=== PATIENT | female | born 1950 | race Caucasian/White ===

== ENCOUNTER → 2016-11-14 | Outpatient (CLI) | payer BC ==
--- NOTE | 2016-11-20 13:22 | MG ---
HISTORY: SCREENING Comparison: October 09, 2012 and March 17, 2015 FINDINGS: Bilateral CC and MLO projections of the right and left breast were obtained. Scattered fibroglandul ar tissue is seen to be present without significant interval change. No suspicious architectural di stortion, mass or clustered microcalcifications can be observed to suggest malignancy. No skin thic kening or nipple retraction is appreciated. No pathological lymphadenopathy can be identified. Jesse ign-appearing calcifications are noted within the right and left breast. IMPRESSION: NO RADIOGRAPHIC EVIDENCE OF MALIGNANCY. ACR CATEGORY 2 - benign findings. FOLLOW-UP EXAM 1 YEAR. Diagnostic CAD was utilized and reviewed. * 0 (ZERO) - ASSESSMENT INCOMPLETE; ADDITIONAL IMAGING IS NEEDED. * 1/1 (ONE) - NEGATIVE. * 2/II (TWO) - BENIGN FINDINGS. * 3/III (THREE) - PROBABLY BENIGN FINDING; SHORT INTERVAL FOLLOW-UP SUGGESTED. * 4/IV (FOUR) - SUSPICIOUS ABNORMALITY; BIOPSY SHOULD BE CONSIDERED. * 5/V (FIVE) - HIGHLY SUSPICIOUS OF MALIGNANCY; BIOPSY SHOULD BE PERFORMED. A NEGATIVE X-RAY REPORT SHOULD NOT DELAY BIOPSY IF A DOMINANT OR CLINICALLY SUSPICIOUS MASS IS PRESENT; 4 TO 8 PERCENT OF CANCERS ARE NOT IDENTIFIED BY X-RAY. A NEG ATIVE REPORT MAY REINFORCE THE CLINICAL IMPRESSION. ADENOSIS AND DENSE BREASTS MAY OBSCURE AN UNDER LYING NEOPLASM. Reported By:
== END ==
LOC: RAD 09:09
PROVIDERS: ATTEND Specialist
DX: Z12.31 Encounter for screening mammogram for malignant neoplasm of breast (principal)
CPT/HCPCS: 77067

== ENCOUNTER → 2017-03-11 | Outpatient (CLI) | payer BC ==
--- NOTE | 2017-03-11 11:36 | RAD ---
Examination: Chest, PA and lateral views History: Cough and chest wall pain Comparison reference: None Findings: Normal heart size with clear lungs and pleural spaces. There is no mediastinal or hilar les ion. Impression: No acute or significant chronic chest abnormality demonstrated. Reported By:
== END | disposition home or self-care (01) ==
LOC: RAD 11:05
PROVIDERS: ATTEND Internal Medicine
DX: R07.89 Other chest pain (principal)
CPT/HCPCS: 71020

== ENCOUNTER → 2017-05-21 | Outpatient (CLI) | payer OTHER, MEDICARE ==
[2017-05-21 08:51] LABS: BILIRUBIN,URINE NEGATIVE (NEGATIVE); BLOOD/HEMOGLOBIN,URINE 1+ (NEGATIVE); GLUCOSE, URINE NEGATIVE (NEGATIVE); KETONES,URINE NEGATIVE (NEGATIVE); LEUKOCYTE ESTERASE ,URINE 1+ (NEGATIVE); NITRITES,URINE NEGATIVE (NEGATIVE); PROTEIN,URINE NEGATIVE (NEGATIVE); UROBILINOGEN,URINE NORMAL (NORMAL)
[2017-05-21 08:58] LABS: APPEARANCE,URINE CLEAR (CLEAR); BACTERIA,URINE NEGATIVE /HPF (NEGATIVE); BASOPHILS % (AUTO) 0.7 % (0.2-1.0); CALCIUM OXALATE CRYSTALS,UR MODERATE /HPF (NEGATIVE); COLOR,URINE YELLOW (YELLOW); EOSINOPHILS # (AUTO) 0.2 x10^3/uL (0.0-0.2); EOSINOPHILS % (AUTO) 3.2 % (0.9-2.9); HEMATOCRIT 43.3 % (36.0-47.0); HEMOGLOBIN 14.7 g/dL (12.0-16.0); LYMPHOCYTES # (AUTO) 2.2 X10^3/uL (1.3-2.9); LYMPHOCYTES % (AUTO) 42.8 % (21.0-51.0); MEAN CORPUSCULAR HEMOGLOBIN 29.7 pg (27.0-34.0); MEAN CORPUSCULAR HGB CONC 34.1 g/dL (33.0-35.0); MEAN CORPUSCULAR VOLUME 87.1 fL (80.0-100.0); MEAN PLATELET VOLUME 10.6 fL (7.4-11.0); MONOCYTES # (AUTO) 0.5 x10^3/uL (0.3-0.8); MONOCYTES % (AUTO) 8.9 % (0.0-13.0); NEUTROPHILS # (AUTO) 2.2 x10^3/uL (2.2-4.8); NEUTROPHILS % (AUTO) 44.4 % (42.0-75.0); PLATELET COUNT 262 X10^3/uL (150.0-450.0); RBC,URINE 0-2 /HPF (NEGATIVE); RED BLOOD COUNT 4.97 X10^6/uL (3.5-5.4); RED CELL DISTRIBUTION WIDTH 13.1 % (11.6-16.5); SQUAMOUS EPITHELIAL CELL,UR RARE /HPF (NEGATIVE)
[2017-05-21 09:07] LABS: ALANINE AMINOTRANSFERASE 31 Units/L (12-78); ALBUMIN 3.8 g/dL (3.4-5.0); ALKALINE PHOSPHATASE 59 Units/L (46-116); AMYLASE 68 Units/L (25-115); ASPARTATE AMINO TRANSFERASE 20 Units/L (15-37); BLOOD UREA NITROGEN 17 mg/dL (7-18); CALCIUM 8.9 mg/dL (8.5-10.1); CARBON DIOXIDE 32.2 mmol/L (21-32); CHLORIDE 104 mmol/L (98-107); CREATININE 0.79 mg/dL (0.55-1.02); LIPASE 242 Units/L (73-393); SODIUM 139 mmol/L (136-145); TOTAL PROTEIN 7.4 g/dL (6.4-8.2); eGFR BLACK RACES > 60 (>60); eGFR NON BLACK RACES > 60 (>60)
== END ==
LOC: LAB 08:29
PROVIDERS: ATTEND Internal Medicine
DX: R10.31 Right lower quadrant pain (principal); R10.11 Right upper quadrant pain
CPT/HCPCS: 36415; 80053; 81001; 82150; 83690; 85025

== ENCOUNTER → 2017-05-24 | Outpatient (CLI) | payer OTHER, MEDICARE ==
--- NOTE | 2017-05-24 15:50 | CT ---
CT abdomen and pelvis with contrast Indication: New with right flank pain. Comparison: None Findings: Images of the lower lungs are unremarkable except for bibasilar atelectasis. The subcutaneo us tissues are unremarkable. The abdominal aorta shows no atherosclerotic disease or aneurysmal dilat ation. The bone windows demonstrate mild multilevel discogenic degenerative disease without aggressiv e lesion. Abdomen: The liver, adrenal glands, right kidney, gallbladder, pancreas and spleen are unremarkable. The left kidney is unremarkable except for a 2 cm partially exophytic mid region hypodensity. Pelvis: The appendix is normal shows no dilatation. There are scattered colonic diverticula without a djacent inflammation. Small bowel shows no abnormality. The urinary bladder is normal. The uterus Conclusion: No acute abnormality involving the abdomen and pelvis. Diverticulosis without CT evidence of diverticulitis. Simple appearing left renal cyst. Reported By:
--- NOTE | 2017-05-24 16:56 | CT ---
Examination: CT of the chest with contrast. Clinical history: History of fall 2 weeks ago with right rib injury. Technique: Multiple axial images were obtained from the lung apices down to the lung bases, following the intravenous administration of 100 mL of Omnipaque 350. Dose reduction techniques including autom ated exposure control (AEC) and adjustment of mA and kV were utilized. Comparison: Chest x-ray dated 03/11/2017 Findings: The heart is normal in size. The thoracic aorta and remainder of the great vessels are within normal limits. No hilar or mediastinal mass is noted. No enlarged lymph nodes, by CT criteria, are noted in the medi astinum, mukund or axilla bilaterally. No central obstructing bronchial lesion is noted. No pleural or pericardial effusion is noted. Mild dependent airspace disease is seen in the lower lobes bilaterally, likely due to passive atelect asis. There is a 1.9 cm exophytic low-density mass associated with the upper pole of the left kidney, which measures approximately 16 Hounsfield units and probably represents a complicated benign cyst. The re mainder of the visualized portion of the upper abdomen is unremarkable. There is a thoracolumbar scoliosis seen convex to the right, which may be positional in nature. Degen erative changes are noted in the spine. No acute osseous abnormality is noted. Impression: 1. Probable complicated benign left renal cyst, as described above. 2. The remainder of the examination is within normal limits. Reported By:
== END ==
LOC: RAD 09:11
PROVIDERS: ATTEND Family Medicine
DX: R10.84 Generalized abdominal pain (principal); R07.81 Pleurodynia
CPT/HCPCS: 71260; 74177; A4222